=== PATIENT | female | born 2000 | race American Indian/Alaskan Native ===

== ENCOUNTER 2020-04-20 11:15 | Observation (INO) | payer MEDICAID ==
--- NOTE | 2020-04-20 11:53 | Emergency Department Report ---
ED General Adult HPI - General Chief complaint: Recheck/Abnormal Lab/Rx Stated complaint: LOW HEMOGLOBIN PUI?: No Time Seen by Provider: 04/20/20 11:31 Source: patient Mode of arrival: Ambulatory Limitations: No Limitations - History of Present Illness Initial comments: This is a 19-year-old special-needs female brought to ED by her mother stating that her primary care physician called and told patient to come to the ED for ev aluation due to a low hemoglobin at 5.5. Her mother states that her blood work was taken yesterday. Patient states that she was having vaginal abnormal bleeding for about 4 months which stopped 2 weeks ago after primary care physician given her Depo shot. Patient states she has not had bleeding for 2 weeks now. Patient noted that she did have a episode of nosebleed yesterday and today which lasted for couple seconds and resolved. Patient denies any medical problems other than spina bifida at . She denies fever/chills/abdominal pain/chest pain/shortness of breath/vaginal bleed/rectal bleed. Mom does note that the patient has been sleeping a lot more than usual otherwise no other s ymptoms. - Related Data Allergies Allergy/AdvReac Type Severity Reaction Status Date / Time No Known Allergies Allergy Unverified 04/20/20 11:24 ED Review of Systems ROS: Stated complaint: LOW HEMOGLOBIN Other details as noted in HPI Comment: All other systems reviewed and negative ED Past Medical Hx - Past Medical History Additional medical history: SPINA BIFIDA/ BLOOT IN HEAD AT - Surgical History Past Surgical History?: No - Social History Smoking Status: Never Smoker Substance Use Type: None ED Physical Exam - General Limitations: No Limitations General appearance: alert, in no apparent distress - Head Head exam: Present: atraumatic, normocephalic - Eye Eye exam: Present: normal appearance - ENT ENT exam: Present: mucous membranes moist - Neck Neck exam: Present: normal inspection - Respiratory Respiratory exam: Present: normal lung sounds bilaterally. Absent: respiratory distress - Cardiovascular Cardiovascular Exam: Present: regular rate, normal rhythm. Absent: systolic murmur, diastolic murmur, rubs, gallop - GI/Abdominal GI/Abdominal exam: Present: soft, normal bowel sounds - Extremities Exam Extremities exam: Present: normal inspection - Back Exam Back exam: Present: normal inspection - Neurological Exam Neurological exam: Present: alert, oriented X3 - Psychiatric Psychiatric exam: Present: normal affect, normal mood - Skin Skin exam: Present: warm, dry, intact, normal color. Absent: rash ED Course Vital Signs 04/20/20 04/20/20 04/20/20 11:31 14:30 14:45 Temperature 99.2 F Pulse Rate 110 H 104 H 114 H Respiratory 20 21 20 Rate Blood Pressure 168/79 128/58 O2 Sat by Pulse 100 100 97 Oximetry 04/20/20 04/20/20 04/20/20 14:46 15:00 15:16 Temperature Pulse Rate 114 H 114 H 105 H Respiratory 14 20 14 Rate Blood Pressure 128/58 119/65 119/65 O2 Sat by Pulse 100 100 100 Oximetry 04/20/20 04/20/20 04/20/20 15:30 15:45 16:00 Temperature Pulse Rate 105 H 99 H 108 H Respiratory 22 18 23 Rate Blood Pressure 130/63 132/57 132/57 O2 Sat by Pulse 100 100 100 Oximetry 04/20/20 04/20/20 04/20/20 16:15 16:30 16:45 Temperature Pulse Rate 101 H 108 H 109 H Respiratory 19 12 15 Rate Blood Pressure 126/58 126/58 126/70 O2 Sat by Pulse 100 100 94 Oximetry 04/20/20 17:00 Temperature Pulse Rate 111 H Respiratory 19 Rate Blood Pressure 126/70 O2 Sat by Pulse 100 Oximetry - Reevaluation(s) Reevaluation #1: 04/20/20 12:57 Patient is in no acute distress. - Consultations Consultation #1: Discussed case with Dr. Darden from [facility] woman [facility] [employer]TER who noted that due to patient's lack of vaginal bleed this is not a [facility] case and her anemia should be addressed medically. Suggested to follow-up with PCP for continue of Depo since that resolved the vaginal bleed 04/20/20 12:56 ED Medical Decision Making - Lab Data Result diagrams: 04/20/20 11:51 04/20/20 11:51 Laboratory Last Values WBC 6.7 K/mm3 (4.5-11.0) 04/20/20 11:51 RBC 2.97 M/mm3 (3.65-5.03) L 04/20/20 11:51 Hgb 5.7 gm/dl (10.1-14.3) L* 04/20/20 11:51 Hct 19.1 % (30.3-42.9) L* 04/20/20 11:51 MCV 64 fl (79-97) L 04/20/20 11:51 MCH 19 pg (28-32) L 04/20/20 11:51 MCHC 30 % (30-34) 04/20/20 11:51 RDW 18.0 % (13.2-15.2) H 04/20/20 11:51 Plt Count 730 K/mm3 (140-440) H 04/20/20 11:51 Lymph % (Auto) 20.1 % (13.4-35.0) 04/20/20 11:51 [place] % (Auto) 6.4 % (0.0-7.3) 04/20/20 11:51 Eos % (Auto) 0.5 % (0.0-4.3) 04/20/20 11:51 Baso % (Auto) 1.0 % (0.0-1.8) 04/20/20 11:51 Lymph # (Auto) 1.3 K/mm3 (1.2-5.4) 04/20/20 11:51 [place] # (Auto) 0.4 K/mm3 (0.0-0.8) 04/20/20 11:51 Eos # (Auto) 0.0 K/mm3 (0.0-0.4) 04/20/20 11:51 Baso # (Auto) 0.1 K/mm3 (0.0-0.1) 04/20/20 11:51 Seg Neutrophils % 72.0 % (40.0-70.0) H 04/20/20 11:51 Seg Neutrophils # 4.8 K/mm3 (1.8-7.7) 04/20/20 11:51 PT 13.5 Sec. (12.2-14.9) 04/20/20 12:23 INR 1.05 (0.87-1.13) 04/20/20 12:23 APTT 30.3 Sec. (24.2-36.6) 04/20/20 12:23 Sodium 139 mmol/L (137-145) 04/20/20 11:51 Potassium 4.1 mmol/L (3.6-5.0) 04/20/20 11:51 Chloride 108.4 mmol/L (98-107) H 04/20/20 11:51 Carbon Dioxide 25 mmol/L (22-30) 04/20/20 11:51 Anion Gap 10 mmol/L 04/20/20 11:51 BUN 6 mg/dL (7-17) L 04/20/20 11:51 Creatinine 0.7 mg/dL (0.6-1.2) 04/20/20 11:51 Estimated GFR > 60 ml/min 04/20/20 11:51 BUN/Creatinine Ratio 9 % 04/20/20 11:51 Glucose 96 mg/dL (65-100) 04/20/20 11:51 Calcium 9.1 mg/dL (8.4-10.2) 04/20/20 11:51 Total Bilirubin 0.30 mg/dL (0.1-1.2) 04/20/20 11:51 AST 14 units/L (5-40) 04/20/20 11:51 ALT 7 units/L (7-56) 04/20/20 11:51 Alkaline Phosphatase 60 units/L (35-129) 04/20/20 11:51 Total Protein 8.1 g/dL (6.3-8.2) 04/20/20 11:51 Albumin 4.3 g/dL (3.9-5) 04/20/20 11:51 Albumin/Globulin Ratio 1.1 % 04/20/20 11:51 HCG, Quant < 2 mIU/mL (0-4) 04/20/20 11:51 - Medical Decision Making Is 19-year-old female presented with low hemoglobin due to blood loss Patient admitted to [facility]. Patient is in no acute distress. 2 units of blood ordered. Case discussed with Dr. Lynn, hospitalist. Patient admitted to the floor. Critical care attestation.: If time is entered above; I have spent that time in minutes in the direct care of this critically ill patient, excluding procedure time. ED Disposition Clinical Impression: Anemia, Low hemoglobin, Low hematocrit Disposition: OP ADMIT IP TO THIS HOSP Is pt being admited?: Yes Does the pt Need Aspirin: No Condition: Stable
[2020-04-20 12:25] LABS: Basophils # (Auto) 0.1 K/mm3 (0.0-0.1); Eosinophils % (Auto) 0.5 % (0.0-4.3); Lymphocytes # (Auto) 1.3 K/mm3 (1.2-5.4); Lymphocytes % (Auto) 20.1 % (13.4-35.0); Mean Corpuscular HGB Conc 30 % (30-34); Monocytes # (Auto) 0.4 K/mm3 (0.0-0.8); Monocytes % (Auto) 6.4 % (0.0-7.3); Platelet Count 730 K/mm3 (140-440); Red Blood Count 2.97 M/mm3 (3.65-5.03)
[2020-04-20 12:28] LABS: Mean Corpuscular Volume 64 fl (79-97)
[2020-04-20 12:30] LABS: Hematocrit 19.1 % (30.3-42.9); Hemoglobin 5.7 gm/dl (10.1-14.3)
[2020-04-20 12:45] LABS: Alanine Aminotransferase 7 units/L (7-56); Albumin 4.3 g/dL (3.9-5); Blood Urea Nitrogen 6 mg/dL (7-17); Calcium 9.1 mg/dL (8.4-10.2); Hemolysis Index 0
[2020-04-20 12:46] LABS: BUN/Creatinine Ratio 9
[2020-04-20 12:56] LABS: INR 1.05 (0.87-1.13)
[2020-04-20 12:57] LABS: Partial Thromboplastin Time 30.3 Sec. (24.2-36.6)
[2020-04-20] MEDS: SODIUM CHLORIDE 0.9% 500 ML 500 ML IV ONE ×2 (16:58→22:20)
--- NOTE | 2020-04-20 18:01 | Ultrasound Report ---
CLINICAL DATA: vag bleed TECHNICAL DATA: Ultrasound, pelvic (nonobstetric), real-time with image documentation; transabdominal imaging with Do ppler was performed. FINDINGS: The uterus is of normal size and echogenicity. There are no uterine masses. Endometrial thickness is 1.5 cm The right and left ovaries are of symmetric size and echogenicity. There are no ovarian or ad nexal masses. Small amount of fluid is present surrounding the right adnexa. Doppler imaging demonstrates normal vascular flow to both ovaries. There is no significant quantity of free fluid dependently within the pelvis. IMPRESSION: Small amount of fluid right adnexa questionable ruptured ovarian cyst. Recommend clinical correlation . Exam is somewhat limited by lack of transvaginal imaging GUIDELINES FOR IMAGING OF OVARIAN--ADNEXAL CYST: WOMEN OF REPRODUCTIVE AGE: 1. Cysts <=3 cm: Normal physiologic findings; at the discretion of the interpreting physician whether or not to describe them in the imaging report; do not need follow-up. 2. Cysts >3 and <=5 cm: Should be described in the imaging report with a statement that they are almo st certainly benign; do not need follow-up. 3. Cysts >5 and <=7 cm: Should be described in the imaging report with a statement that they are almo st certainly benign; yearly follow-up with US recommended. 4. Cysts >7 cm: Since these may be difficult to assess completely with US, further imaging with magne tic resonance (MR) or surgical evaluation should be considered. POSTMENOPAUSAL WOMEN: 1. Cysts <=1 cm: Are clinically inconsequential; at the discretion of the interpreting physician whet her or not to describe them in the imaging report; do not need follow-up. 2. Cysts >1 and <=7 cm: Should be described in the imaging report with statement that they are almost certainly benign; yearly follow-up, at least initially, with US recommended. Some practices may opt to increase the lower size threshold for follow-up from 1 cm to as high as 3 cm. One may opt to tanika nue follow-up annually or to decrease the frequency of follow-up once stability or decrease in size h as been confirmed. Cysts in the larger end of this range should still generally be followed on a regu lar basis. 3. Cysts >7 cm: Since these may be difficult to assess completely with US, further imaging with MR or surgical evaluation should be considered. Signer Name: Paco Whittington MD Signed: 04/20/2020 5:57 PM Workstation Name: [id number]
[2020-04-20] MEDS ORDERED: SODIUM CHLORIDE 0.9% 500 ML 500 ML ONE (21:59)
[2020-04-20] MEDS ORDERED: ONDANSETRON 4 MG/2 ML INJ IV PRN (22:06)
[2020-04-20] MEDS ORDERED: ACETAMINOPHEN 325 MG TAB PO PRN (22:06)
[2020-04-20] MEDS ORDERED: oxyCODONE /ACETAMINOPHEN 5-325MG TAB PO PRN (22:06)
[2020-04-20] MEDS ORDERED: HYDROmorphone 1 MG/1 ML INJ IV PRN (22:06)
--- NOTE | 2020-04-20 22:06 | History and Physical Report ---
History of Present Illness Date of examination: 04/20/20 Date of admission: 04/20/20 16:07 Chief complaint: Low hemoglobin of 5.5 History of present illness: 19-year-old female with special needs including history of spina bifid and a small bleed in the brain at the time of seen by primary care physician for low hemoglobin of 5.5. Patient has increased vaginal bleeding for about 4 months which stopped about 2 weeks ago. Patient was given a Depo shot. No work-up for menorrhagia was done. Patient feels like lightheaded and generalized weakness. And fatigue on minimal exertion. No melanotic stools. No hematemesis. - Past Medical History Additional medical history: SPINA BIFIDA/ BLOOT IN HEAD AT - Surgical History Past Surgical History?: No - Social History Smoking Status: Never Smoker Substance Use Type: None Review of Systems ROS: Stated complaint: LOW HEMOGLOBIN Other details as noted in HPI Comment: All other systems reviewed and negative Medications and Allergies Allergies Allergy/AdvReac Type Severity Reaction Status Date / Time No Known Allergies Allergy Verified 04/20/20 22:06 Exam - Constitutional Vitals: Temp Pulse Resp BP Pulse Ox 98.3 F 101 H 24 116/55 100 04/20/20 19:15 04/20/20 19:15 04/20/20 19:15 04/20/20 19:15 04/20/20 19:15 General appearance: Present: no acute distress, well-nourished - EENT Eyes: Present: PERRL ENT: hearing intact, clear oral mucosa, other - Neck Neck: Present: supple, normal ROM - Respiratory Respiratory effort: normal Respiratory: bilateral: CTA - Cardiovascular Heart rate: 78 Rhythm: regular Heart Sounds: Present: S1 & S2. Absent: rub, click - Extremities Extremities: pulses symmetrical, No edema Peripheral Pulses: within normal limits - Abdominal General gastrointestinal: Present: soft, non-tender, non-distended, normal bowel sounds Female genitourinary: Present: normal - Integumentary Integumentary: Present: clear, warm, dry - Musculoskeletal Musculoskeletal: gait normal, strength equal bilaterally - Psychiatric Psychiatric: appropriate mood/affect, intact judgment & insight - Neurologic Neurologic: CNII-XII intact, moves all extremities Results - Labs CBC & Chem 7: 04/21/20 05:51 04/21/20 05:51 Labs: Laboratory Last Values WBC 6.7 K/mm3 (4.5-11.0) 04/20/20 11:51 RBC 2.97 M/mm3 (3.65-5.03) L 04/20/20 11:51 Hgb 5.7 gm/dl (10.1-14.3) L* 04/20/20 11:51 Hct 19.1 % (30.3-42.9) L* 04/20/20 11:51 MCV 64 fl (79-97) L 04/20/20 11:51 MCH 19 pg (28-32) L 04/20/20 11:51 MCHC 30 % (30-34) 04/20/20 11:51 RDW 18.0 % (13.2-15.2) H 04/20/20 11:51 Plt Count 730 K/mm3 (140-440) H 04/20/20 11:51 Lymph % (Auto) 20.1 % (13.4-35.0) 04/20/20 11:51 [place] % (Auto) 6.4 % (0.0-7.3) 04/20/20 11:51 Eos % (Auto) 0.5 % (0.0-4.3) 04/20/20 11:51 Baso % (Auto) 1.0 % (0.0-1.8) 04/20/20 11:51 Lymph # (Auto) 1.3 K/mm3 (1.2-5.4) 04/20/20 11:51 [place] # (Auto) 0.4 K/mm3 (0.0-0.8) 04/20/20 11:51 Eos # (Auto) 0.0 K/mm3 (0.0-0.4) 04/20/20 11:51 Baso # (Auto) 0.1 K/mm3 (0.0-0.1) 04/20/20 11:51 Seg Neutrophils % 72.0 % (40.0-70.0) H 04/20/20 11:51 Seg Neutrophils # 4.8 K/mm3 (1.8-7.7) 04/20/20 11:51 PT 13.5 Sec. (12.2-14.9) 04/20/20 12:23 INR 1.05 (0.87-1.13) 04/20/20 12:23 APTT 30.3 Sec. (24.2-36.6) 04/20/20 12:23 Sodium 139 mmol/L (137-145) 04/20/20 11:51 Potassium 4.1 mmol/L (3.6-5.0) 04/20/20 11:51 Chloride 108.4 mmol/L (98-107) H 04/20/20 11:51 Carbon Dioxide 25 mmol/L (22-30) 04/20/20 11:51 Anion Gap 10 mmol/L 04/20/20 11:51 BUN 6 mg/dL (7-17) L 04/20/20 11:51 Creatinine 0.7 mg/dL (0.6-1.2) 04/20/20 11:51 Estimated GFR > 60 ml/min 04/20/20 11:51 BUN/Creatinine Ratio 9 % 04/20/20 11:51 Glucose 96 mg/dL (65-100) 04/20/20 11:51 Calcium 9.1 mg/dL (8.4-10.2) 04/20/20 11:51 Total Bilirubin 0.30 mg/dL (0.1-1.2) 04/20/20 11:51 AST 14 units/L (5-40) 04/20/20 11:51 ALT 7 units/L (7-56) 04/20/20 11:51 Alkaline Phosphatase 60 units/L (35-129) 04/20/20 11:51 Total Protein 8.1 g/dL (6.3-8.2) 04/20/20 11:51 Albumin 4.3 g/dL (3.9-5) 04/20/20 11:51 Albumin/Globulin Ratio 1.1 % 04/20/20 11:51 HCG, Quant < 2 mIU/mL (0-4) 04/20/20 11:51 Blood Type O POSITIVE 04/20/20 13:00 Antibody Screen Negative 04/20/20 13:00 Crossmatch See Detail 04/20/20 13:00 Short CBC 04/20/20 04/21/20 Range/Units 11:51 05:51 WBC 6.7 8.2 (4.5-11.0) K/mm3 Hgb 5.7 L* 8.7 L D (10.1-14.3) gm/dl Hct 19.1 L* 26.9 L D (30.3-42.9) % Plt Count 730 H 523 H (140-440) K/mm3 BMP 04/20/20 04/21/20 11:51 05:51 Sodium 139 139 Potassium 4.1 4.0 Chloride 108.4 H 109.1 H Carbon Dioxide 25 21 L BUN 6 L 6 L Creatinine 0.7 0.7 Glucose 96 86 Calcium 9.1 8.8 Liver Function 04/20/20 04/21/20 Range/Units 11:51 05:51 Total Bilirubin 0.30 0.70 (0.1-1.2) mg/dL AST 14 13 (5-40) units/L ALT 7 8 (7-56) units/L Alkaline Phosphatase 60 53 (35-129) units/L Albumin 4.3 3.9 (3.9-5) g/dL - Imaging and Cardiology Imaging and Cardiology: Pelvic ultrasound Small amount of fluid in the right adnexa questionable ruptured ovarian cyst recommend clinical correlation examination somewhat limited by lack of time for evaluation Nick/IV: Voiding Method Toilet Assessment and Plan Advance Directives: Yes (Full code) VTE prophylaxis?: Mechanical Plan of care discussed with patient/family: Yes - Patient Problems (1) Symptomatic anemia Current Visit: Yes Status: Acute Plan to address problem: Patient be transfused 2 units of blood Patient intubated followed by [facility] Patient to be discharged if hemoglobin is more than 8 (2) Menorrhagia Current Visit: Yes Status: Acute Qualifiers: Menorrhagia type: with irregular cycle Qualified Code(s): N92.1 - Excessive and frequent menstruation with irregular cycle Plan to address problem: Controlled now with the [facility] for the last 3 weeks Follow-up with [facility] as outpatient (3) DVT prophylaxis Current Visit: Yes Status: Acute Plan to address problem: On SCDs and GI prophylaxis (4) Discharge planning issues Current Visit: Yes Status: Acute Plan to address problem: Patient will be discharged tomorrow if hemoglobin more than 8 and to follow-up with [facility]
[2020-04-20] MEDS ORDERED: SODIUM CHLORIDE 0.9% 1000 ML 1,000 ML IV SCH (22:15)
[2020-04-21 04:41] VITALS: BP 124/80
[2020-04-21 06:16] LABS: Hematocrit 26.9 % (30.3-42.9); Hemoglobin 8.7 gm/dl (10.1-14.3); Mean Corpuscular HGB Conc 32 % (30-34); Mean Corpuscular Volume 75 fl (79-97); Platelet Count 523 K/mm3 (140-440); Red Blood Count 3.58 M/mm3 (3.65-5.03)
[2020-04-21 06:30] LABS: Red Cell Distribution Width 26.4 % (13.2-15.2)
[2020-04-21 06:38] LABS: Alanine Aminotransferase 8 units/L (7-56); Albumin 3.9 g/dL (3.9-5); Blood Urea Nitrogen 6 mg/dL (7-17); Calcium 8.8 mg/dL (8.4-10.2); Hemolysis Index 7
[2020-04-21 06:40] LABS: BUN/Creatinine Ratio 9
[2020-04-21 07:24] LABS: Band Neutrophils # (Manual) 0.1 K/mm3; Hypochromasia 1+; Total Cells Counted 100
[2020-04-21 07:25] LABS: Anisocytosis 3+; Platelet Estimate Consistent w Auto
[2020-04-21] MEDS ORDERED: FAMOTIDINE 20 MG/2 ML INJ IV SCH (10:00)
--- NOTE | 2020-04-21 15:10 | Discharge Summary ---
Providers - Providers Date of Admission: 04/20/20 16:07 Date of discharge: 04/21/20 Attending physician: MAMTA MCKEON Hospitalization Reason for admission: Severe blood loss anemia/severe menorrhagia Condition: Stable Pertinent studies: Pelvic ultrasound; no masses or lesions, questionable small ovarian cyst rupture Patient asymptomatic, advised to follow HEALTH INSURANCE AGENT for further evaluation management Hospital course: This is a 19-year-old special-needs female patient, morbidly obese with BMI of 43.1 with history of spina bifida from , heavy. And menorrhagia for the last few months, last. 2 weeks ago. Denies vaginal bleeding hematemesis melena or hematuria, was sent by her primary care physician with abnormal labs with hemoglobin of 5.5. Patient complains of generalized fatigue and weakness. No vaginal bleeding now she finished up. 2 weeks ago Denies nausea vomiting or abdominal pain' patient has no exposure to COVID-19 people, denies fever shortness of breath or cough Hemoglobin done in the ER is 5.5, patient was admitted to the hospital subsequently received 2 units of PRBC transfusion With improvement of hemoglobin from 5.5-8.4. Today patient is comfortable no new complaints vital signs stable physical examination prior to discharge is unremarkable Patient had pelvic ultrasound with no acute abnormality except for 1 ovarian cyst which questionable rupture Patient is hemodynamically and clinically stable DC home and follow-up with HEALTH INSURANCE AGENT and PMD per schedule Discharge diagnosis --Symptomatic anemia Current Visit: Yes Status: Acute Plan to address problem: Patient be transfused 2 units of blood Patient intubated followed by [facility] Patient to be discharged if hemoglobin is more than 8 --Chronic blood loss anemia --Menorrhagia Current Visit: Yes Status: Acute Plan to address problem: Controlled now with the [place] for the last 3 weeks. Follow-up with HEALTH INSURANCE AGENT as outpatient --DVT prophylaxis Current Visit: Yes Status: Acute Plan to address problem: On SCDs and GI prophylaxis --Morbid obesity: BMI 43.1 Diet modification , exercise as tolerated and weight reduction When medically stable patient is hemodynamically and clinically stable at discharge Disposition: DC-01 TO HOME OR SELFCARE Time spent for discharge: 35 min Core Measure Documentation - Palliative Care Palliative Care/ Comfort Measures: Not Applicable - Core Measures Any of the following diagnoses?: none Exam - Constitutional Vitals: Temp Pulse Resp BP Pulse Ox 98.5 F 75 18 124/80 100 04/21/20 04:25 04/21/20 04:25 04/21/20 10:00 04/21/20 04:25 04/21/20 10:00 General appearance: Present: no acute distress, well-nourished, obese (Morbidly) - EENT Eyes: Present: PERRL, EOM intact - Neck Neck: Present: supple, normal ROM - Respiratory Respiratory effort: normal Respiratory: bilateral: diminished, negative: rales, rhonchi, wheezing - Cardiovascular Rhythm: regular Heart Sounds: Present: S1 & S2 - Extremities Extremities: no ischemia, No edema - Abdominal General gastrointestinal: Present: soft, non-tender, non-distended, normal bowel sounds - Integumentary Integumentary: Present: clear, warm - Musculoskeletal Musculoskeletal: strength equal bilaterally, generalized weakness - Psychiatric Psychiatric: appropriate mood/affect, cooperative - Neurologic Neurologic: moves all extremities Plan Activity: advance as tolerated Diet: regular Additional Instructions: Advised to see private HEALTH INSURANCE AGENT in 1 to 2 weeks. If you have worsening symptoms contact MD and go to emergency room. Advised dietary modification , lifestyle changes ,exercise as tolerated and weight reduction when medically stable Follow up with: ADI DAUGHERTY [Other] - 7 Days MED JOSEPH MD [Staff Physician] - 7 Days Prescriptions: Ferrous Sulfate [Feosol 325 MG tab] 325 mg PO BID #60 tablet
== END 2020-04-21 17:13 | disposition home or self-care (01) ==
LOC: ED 11:15 → 4A 16:07
PROVIDERS: ADMIT Internal Medicine; ATTEND Internal Medicine
DX: D64.9 Anemia, unspecified (principal); N92.0 Excessive and frequent menstruation with regular cycle; D62 Acute posthemorrhagic anemia; E66.01 Morbid (severe) obesity due to excess calories; Z68.41 Body mass index [BMI] 40.0-44.9, adult
CPT/HCPCS: 36415; 36430; 76856; 80053; 84702; 85025; 85610; 85730; 86850; 86900; 86901; 86920; 96360; 99284; G0378; J7030; J7040; P9016; 85007